=== PATIENT | male | born 1965 | race Caucasian/White ===

== ENCOUNTER → 2021-07-22 | Outpatient (CLI) | payer OTHER | LOC: KOH-I 10:43 | DX: M54.5 Low back pain (principal); M79.641 Pain in right hand; M25.521 Pain in right elbow; M51.36 Other intervertebral disc degeneration, lumbar region | CPT/HCPCS: 72100; 73070; 73120 ==

== ENCOUNTER → 2022-02-15 | Outpatient (CLI) | payer OTHER | LOC: SLEEP-COR 09:51 | DX: G47.33 Obstructive sleep apnea (adult) (pediatric) (principal) | CPT/HCPCS: 95811 ==